=== PATIENT | male | born 1975 | race Caucasian/White ===

== ENCOUNTER 2019-03-14 19:22 | Inpatient (IN) | payer OTHER ==
[~2019-03-14] VITALS: Ht 182.9 cm; Wt 135.3 kg
[2019-03-14] MEDS ORDERED: SOD CHLORIDE 0.9% 1,000 ML IV STA (20:40)
[2019-03-14] MEDS ORDERED: DICYCLOMINE 20 MG INJ IM ONE (21:00)
[2019-03-14] MEDS ORDERED: morphine 4 MG/ML VIAL IV STA ×2 (22:24→23:03)
[2019-03-14] MEDS ORDERED: ONDANSETRON 4 MG INJ ONE (22:27)
[2019-03-14] MEDS ORDERED: PIPER-TAZO 3.375 GM IV (PMX) 100 ML IVPB STA (23:03)
[2019-03-14] MEDS ORDERED: RANI150T5 PO (23:13)
[2019-03-15] VITALS (16 sets, daily range): BP systolic 112–140; BP diastolic 64–80; PULSE 60–115; RESP 15–18; Ht 182.9 cm; Wt 135.3 kg
--- NOTE | 2019-03-15 00:03 | ERD ---
ER Documentation Chief Complaint Chief Complaint diffuse belly pains x a month HPI 43-year-old male presenting with diffuse abdominal pain that he describes as cramping and burning. He states that he has had these "episodes" of abdominal pain for several years. He had an endoscopy and colonoscopy done about 15 years ago for this which were unremarkable. He has not seen a physician for this pain ever since. Within the past month, his pain has worsened. It is generalized, colicky, with no associated fevers. He did have one episode of vomiting this morning which was nonbloody and nonbilious. But usually he denies any nausea or vomiting with these episodes. He states that his stools are occasionally loose but he is also occasionally constipated. No bloody bowel movements or melena. Due to worsening pain, his brought him in for evaluation. ROS All systems reviewed and are negative except as per history of present illness. Medications Home Meds Reported Medications Ranitidine Hcl* (Ranitidine Hcl*) 150 Mg Tablet, 150 MG PO DAILY, #30 TAB 03/14/19 Allergies Allergies: Coded Allergies: No Known Allergy (Unverified , 03/14/19) PMhx/Soc Medical and Surgical Hx: pt denies Medical Hx, pt denies Surgical Hx Hx Miscellaneous Medical Probl: Yes (Chronic abdominal pain) Hx Alcohol Use: No Hx Substance Use: Yes (marijuana) Hx Tobacco Use: No Smoking Status: Never smoker FmHx Family History: No diabetes Physical Exam Vitals Vital Signs Date Temp Pulse Resp B/P (MAP) Pulse Ox O2 O2 Flow FiO2 Time Delivery Rate 03/14/19 99.3 78 18 136/83 96 23:53 (100) 03/14/19 99.3 81 18 122/77 96 23:04 (92) 03/14/19 99.3 95 18 151/89 96 19:27 (109) Physical Exam Const: No acute distress, well-appearing, nontoxic Head: Atraumatic Eyes: Normal Conjunctiva ENT: Normal External Ears, Nose and Mouth. Neck: Full range of motion. No meningismus. Resp: Clear to auscultation bilaterally Cardio: Regular rate and rhythm, no murmurs Abd: Soft, diffuse mild tenderness to palpation with no rebound or guarding. Negative Forbes sign. No McBurney's point tenderness. Hyperactive bowel sounds Skin: No petechiae or rashes Back: No midline or flank tenderness Ext: No cyanosis, or edema Neur: Awake and alert Psych: Normal Mood and Affect Result Diagram: 03/14/19202803/14/192028 Results 24 hrs Laboratory Tests Test 03/14/19 20:29 White Blood Count 9.7 10^3/ul Red Blood Count 5.84 10^6/ul Hemoglobin 15.8 g/dl Hematocrit 48.4 % Mean Corpuscular Volume 82.9 fl Mean Corpuscular Hemoglobin 27.1 pg Mean Corpuscular Hemoglobin Concent 32.6 g/dl Red Cell Distribution Width 12.4 % Platelet Count 214 10^3/UL Mean Platelet Volume 9.3 fl Immature Granulocytes % 0.300 % Neutrophils % 75.6 % Lymphocytes % 18.5 % Monocytes % 5.1 % Eosinophils % 0.4 % Basophils % 0.1 % Nucleated Red Blood Cells % 0.0 /100WBC Immature Granulocytes # 0.030 10^3/ul Neutrophils # 7.3 10^3/ul Lymphocytes # 1.8 10^3/ul Monocytes # 0.5 10^3/ul Eosinophils # 0.0 10^3/ul Basophils # 0.0 10^3/ul Nucleated Red Blood Cells # 0.0 10^3/ul Urine Color YELLOW Urine Clarity CLEAR Urine pH 6.0 Urine Specific [place] 1.014 Urine Ketones NEGATIVE mg/dL Urine Nitrite NEGATIVE mg/dL Urine Bilirubin NEGATIVE mg/dL Urine Urobilinogen NEGATIVE mg/dL Urine Leukocyte Esterase NEGATIVE Osfi/ul Urine Hemoglobin NEGATIVE mg/dL Urine Glucose NEGATIVE mg/dL Urine Total Protein NEGATIVE mg/dl Sodium Level 144 mmol/L Potassium Level 3.9 mmol/L Chloride Level 104 mmol/L Carbon Dioxide Level 30 mmol/L Anion Gap 10 Blood Urea Nitrogen 11 mg/dl Creatinine 0.96 mg/dl Est Glomerular Filtrat Rate mL/min > 60 mL/min Glucose Level 99 mg/dl Calcium Level 9.8 mg/dl Total Bilirubin 0.8 mg/dl Direct Bilirubin 0.00 mg/dl Indirect Bilirubin 0.8 mg/dl Aspartate Amino Transf (AST/SGOT) 40 IU/L Alanine Aminotransferase (ALT/SGPT) 73 IU/L Alkaline Phosphatase 94 IU/L Total Protein 8.5 g/dl Albumin 4.7 g/dl Globulin 3.80 g/dl Albumin/Globulin Ratio 1.23 Lipase 64 U/L Current Medications Medications Dose Sig/Brandi Start Time Status Last (Trade) Ordered Route PRN Stop Time Admin Dose Reason Admin Sodium 1,000 ml @ Q1H STAT 03/14/19 DC 03/14/19 Chloride 1,000 mls/hr IV 20:40 21:02 03/14/19 21:39 Dicyclomine 20 mg ONCE ONCE 03/14/19 DC 03/14/19 HCl IM 21:00 21:24 (Bentyl) 03/14/19 21:01 Morphine 4 mg ONCE STAT 03/14/19 DC 03/14/19 Sulfate IV 22:24 22:28 (morphine) 03/14/19 22:25 Ondansetron 4 mg STK-MED 03/14/19 DC HCl (Zofran ONCE .ROUTE 22:27 Inj) 03/14/19 22:28 Morphine 6 mg ONCE STAT 03/14/19 DC 03/14/19 Sulfate IV 23:03 23:18 (morphine) 03/14/19 23:05 Piperacillin 100 ml @ ONCE STAT 03/14/19 DC 03/14/19 Sod/ 200 mls/hr IVPB 23:03 23:18 Tazobactam 03/14/19 23:32 Sod Ondansetron 4 mg BRIDGE ORDER 03/15/19 HCl (Zofran PRN IV 00:00 Inj) NAUSEA/VOMITI 03/15/19 23:59 NG 650 mg ER BRIDGE 03/15/19 Acetaminophen PRN PO 00:00 (Tylenol .MILD PAIN 03/15/19 23:59 Tab) 1-3 OR TEMP Procedures/MDM EMERGENT LABS AND DIAGNOSTIC STUDIES: Lab Results above were reviewed and interpreted by me. CBC: no anemia or evidence of infection CMP: No evidence of clinically significant electrolyte abnormality, acidosis, renal failure, hypoglycemia, liver disease, or biliary obstruction Lipase: no evidence of pancreatitis UA: no evidence of infection Radiology Results as interpreted by Radiology below were reviewed by Shaun Quintanilla MD: CT abdomen and pelvis shows evidence of acute appendicitis with no abscess or perforation Initial Nursing notes reviewed. Previous Medical Records requested via the Electronic Health Record. EMERGENCY DEPARTMENT COURSE / MEDICAL DECISION MAKING: Patient is presenting with generalized chronic abdominal pain that has been worsening. He is afebrile with stable vitals. Differential includes but is not limited to IBS, IBD, appendicitis, bowel obstruction, constipation, panc reatitis. Labs did not show any significant abnormalities. CT of the abdomen and pelvis was done showing evidence of acute appendicitis. I contacted general surgeon on-call. Patient will be admitted and made n.p.o. 1 dose of Zosyn given in the ER. Accepting Care Team: Current data and ongoing care discussed. Time: Time of admission Primary Provider: Dr. Mendez Consulting: Dr. Richardson with general surgery Outstanding Data: none Departure Diagnosis: Primary Impression: Acute appendicitis Acute appendicitis type: unspecified acute appendicitis type Qualified Codes: K35.80 - Unspecified acute appendicitis Condition: LOUANN Cruz MD Mar 15, 2019 00:03
[2019-03-15] MEDS ORDERED: ONDANSETRON 4 MG INJ IV PRN ×4 (00:30→12:00)
[2019-03-15] MEDS ORDERED: DOCUSATE SODIUM 100 MG CAP PO PRN (00:30)
[2019-03-15] MEDS ORDERED: ACETAMINOPHEN 325 MG TAB PO PRN ×2 (00:30)
[2019-03-15] MEDS ORDERED: morphine 2 MG INJ IV PRN ×3 (00:30→12:00)
[2019-03-15] MEDS ORDERED: NACL 0.9% 3 ML SYG IV SCH (00:30)
[2019-03-15] MEDS ORDERED: HEPARIN 5,000 UNIT/1 ML VIAL SC SCH (00:30)
[2019-03-15] MEDS: D5W-0.45 NACL + KCL 20 MEQ 1,000 ML IV SCH ×3 (01:18→20:07)
[2019-03-15] MEDS: FAMOTIDINE 20 MG INJ IV SCH ×3 (01:26→20:51)
--- NOTE | 2019-03-15 08:56 | CONS ---
Assessment/Plan Assessment/Plan Assessment/Plan (Daily) CT shows acute retrocecal appendicitis. This does not explain any of the patient's chronic abdominal symptoms. When options were discussed in some detail with the patient and fianc. The patient feels strongly that because of the CT finding of appendicitis that he would like to proceed with appendectomy. I have discussed the procedure, outcomes, expectations, alternatives and risks in detail with the patient who has an excellent understanding of the nature of his situation and agrees to the proposed plan of therapy as outlined. Consultation Date/Type/Reason Admit Date/Time Mar 14, 2019 at 23:44 Date of Consultation: Mar 15, 2019 Type of Consult General surgery Reason for Consultation Acute appendicitis Date/Time of Note DATE: 03/15/19 TIME: 08:51 Hx of Present Illness The patient is a 43-year-old gentleman who presents to the emergency room with a very unusual history of many weeks of nonspecific abdominal pain, but lately mostly in the right lower quadrant. He has had no fevers or chills. He states that he has been having abdominal issues for years but never has had abdominal surgery. CT scan in the emergency room showed acute retrocecal appendicitis Review of systems: HEENT: Within normal limits Pulmonary: No history of asthma, pneumonia or shortness of breath Cardiac: No history of chest pain, MO or arrhythmia Abdomen: As in the HPI : Asymptomatic Past Medical History Medical History: no pertinent history Home Meds Reported Medications Ranitidine Hcl* (Ranitidine Hcl*) 150 Mg Tablet, 150 MG PO DAILY, #30 TAB 03/14/19 Medications Current Medications Ondansetron HCl (Zofran Inj) 4 mg BRIDGE ORDER PRN IV NAUSEA/VOMITING; Start 03/15/19 at 00:00; Stop 03/15/19 at 23:59 Acetaminophen (Tylenol Tab) 650 mg ER BRIDGE PRN PO .MILD PAIN 1-3 OR TEMP; Start 03/15/19 at 00:00; Stop 03/15/19 at 23:59 Potassium Chloride/Dextrose/ Sod Cl 1,000 ml @ 100 mls/hr Q10H IV Last administered on 03/15/19at 01:18; Admin Dose 100 MLS/HR; Start 03/15/19 at 00:07 IV Flush (NS 3 ml) 3 ml PER PROTOCOL IV ; Start 03/15/19 at 00:30 Ondansetron HCl (Zofran Inj) 4 mg Q6H PRN IV NAUSEA/VOMITING; Start 03/15/19 at 00:30 Acetaminophen (Tylenol Tab) 650 mg Q6H PRN PO .PAIN 1-3 OR TEMP; Start 03/15/19 at 00:30 Docusate Sodium (Colace) 100 mg Q12H PRN PO .CONSTIPATION; Start 03/15/19 at 00:30 Famotidine (Pepcid Iv) 20 mg Q12 IV Last administered on 03/15/19at 01:26; Admin Dose 20 MG; Start 03/15/19 at 00:30 Hydromorphone HCl (Dilaudid) 1 mg Q2 PRN IV SEVERE PAIN LEVEL 7-10; Start 03/15/19 at 03:30 Morphine Sulfate (morphine) 2 mg Q2H PRN IV SEVERE PAIN LEVEL 7-10; Start 03/15/19 at 08:00 Allergies: Coded Allergies: No Known Allergy (Unverified , 03/14/19) Past Surgical History Past Surgical Hx: no surgical history Family History Significant Family History: no pertinent family hx Social History Smoking Status: Former smoker Exam/Review of Systems Exam Vitals Vital Signs Date Temp Pulse Resp B/P (MAP) Pulse Ox O2 O2 Flow FiO2 Time Delivery Rate 03/15/19 97.9 66 18 112/76 97 07:50 (88) 03/15/19 Room Air 01:09 Intake and Output 03/14/19 03/14/19 03/15/19 1515:00 23:00 07:00 IntakeIntake Total 500 ml BalanceBalance 500 ml Constitutional: alert, oriented Psych: no complaints Head: normocephalic Eyes: nl conjunctiva ENMT: nl external ears & nose Neck: supple Respiratory: clear to auscultation Cardiovascular: regular rate and rhythm Gastrointestinal: soft (Obese with minimal if any tenderness in the right lower quadrant) Musculoskeletal: nl extremities to inspection Extremities: normal pulses Neurological: SLEEPING [employer]ENDANT II-XII intact Skin: nl turgor Results Result Diagram: 03/15/19 0539 03/15/19 0539 Results 24hrs Laboratory Tests Test 03/14/19 20:29 03/15/19 05:39 White Blood Count 9.7 7.8 Red Blood Count 5.84 5.23 Hemoglobin 15.8 14.1 Hematocrit 48.4 43.4 Mean Corpuscular Volume 82.9 83.0 Mean Corpuscular Hemoglobin 27.1 L 27.0 L Mean Corpuscular Hemoglobin Concent 32.6 32.5 Red Cell Distribution Width 12.4 12.4 Platelet Count 214 174 Mean Platelet Volume 9.3 9.5 Immature Granulocytes % 0.300 0.300 Neutrophils % 75.6 69.1 Lymphocytes % 18.5 23.7 Monocytes % 5.1 5.7 Eosinophils % 0.4 0.9 Basophils % 0.1 0.3 Nucleated Red Blood Cells % 0.0 0.0 Immature Granulocytes # 0.030 0.020 Neutrophils # 7.3 5.4 Lymphocytes # 1.8 1.8 Monocytes # 0.5 0.4 Eosinophils # 0.0 0.1 Basophils # 0.0 0.0 Nucleated Red Blood Cells # 0.0 0.0 Urine Color YELLOW Urine Clarity CLEAR Urine pH 6.0 Urine Specific [place] 1.014 Urine Ketones NEGATIVE Urine Nitrite NEGATIVE Urine Bilirubin NEGATIVE Urine Urobilinogen NEGATIVE Urine Leukocyte Esterase NEGATIVE Urine Hemoglobin NEGATIVE Urine Glucose NEGATIVE Urine Total Protein NEGATIVE Sodium Level 144 143 Potassium Level 3.9 4.3 Chloride Level 104 105 Carbon Dioxide Level 30 30 Anion Gap 10 8 Blood Urea Nitrogen 11 10 Creatinine 0.96 0.90 Est Glomerular Filtrat Rate mL/min > 60 > 60 Glucose Level 99 97 Calcium Level 9.8 9.0 Total Bilirubin 0.8 Direct Bilirubin 0.00 Indirect Bilirubin 0.8 Aspartate Amino Transf (AST/SGOT) 40 Alanine Aminotransferase (ALT/SGPT) 73 H Alkaline Phosphatase 94 Total Protein 8.5 H Albumin 4.7 Globulin 3.80 H Albumin/Globulin Ratio 1.23 Lipase 64 Prothrombin Time 13.4 Prothrombin Time Ratio 1.0 INR International Normalized Ratio 1.01 Hemoglobin A1c 5.0 Free Thyroxine Index 3.52 Thyroxine (T4) 10.1 Triiodothyronine (T3) Uptake 34.9 Medications Medication Current Medications Ondansetron HCl (Zofran Inj) 4 mg BRIDGE ORDER PRN IV NAUSEA/VOMITING; Start 03/15/19 at 00:00; Stop 03/15/19 at 23:59 Acetaminophen (Tylenol Tab) 650 mg ER BRIDGE PRN PO .MILD PAIN 1-3 OR TEMP; Start 03/15/19 at 00:00; Stop 03/15/19 at 23:59 Potassium Chloride/Dextrose/ Sod Cl 1,000 ml @ 100 mls/hr Q10H IV Last administered on 03/15/19at 01:18; Admin Dose 100 MLS/HR; Start 03/15/19 at 00:07 IV Flush (NS 3 ml) 3 ml PER PROTOCOL IV ; Start 03/15/19 at 00:30 Ondansetron HCl (Zofran Inj) 4 mg Q6H PRN IV NAUSEA/VOMITING; Start 03/15/19 at 00:30 Acetaminophen (Tylenol Tab) 650 mg Q6H PRN PO .PAIN 1-3 OR TEMP; Start 03/15/19 at 00:30 Docusate Sodium (Colace) 100 mg Q12H PRN PO .CONSTIPATION; Start 03/15/19 at 00:30 Famotidine (Pepcid Iv) 20 mg Q12 IV Last administered on 03/15/19at 01:26; Admin Dose 20 MG; Start 03/15/19 at 00:30 Hydromorphone HCl (Dilaudid) 1 mg Q2 PRN IV SEVERE PAIN LEVEL 7-10; Start 03/15/19 at 03:30 Morphine Sulfate (morphine) 2 mg Q2H PRN IV SEVERE PAIN LEVEL 7-10; Start 03/15/19 at 08:00 RAHEL SAUL MD Mar 15, 2019 08:55
--- NOTE | 2019-03-15 10:27 | PREAC ---
Date/Time of Note Date/Time of Note DATE: 03/15/19 TIME: 10:26 Anesthesia Eval and Record Evaluation Time Pre-Procedure Interview DATE: 03/15/19 TIME: 10:26 Age 43 Sex male NPO: 8 hrs Preoperative diagnosis appendicitis Planned procedure Lap Appy Past Medical History Past Medical History: Includes GI: GERD, Morbid obesity Surgery & Anesthesia Issues No known issue Meds Anticoagulation: No Beta Yann within 24 hr: No Reason Beta Yann not given: Pt. not on B-Yann Reported Medications Ranitidine Hcl* (Ranitidine Hcl*) 150 Mg Tablet, 150 MG PO DAILY, #30 TAB 03/14/19 Current Medications Ondansetron HCl (Zofran Inj) 4 mg BRIDGE ORDER PRN IV NAUSEA/VOMITING; Start 03/15/19 at 00:00; Stop 03/15/19 at 23:59 Acetaminophen (Tylenol Tab) 650 mg ER BRIDGE PRN PO .MILD PAIN 1-3 OR TEMP; Start 03/15/19 at 00:00; Stop 03/15/19 at 23:59 Potassium Chloride/Dextrose/ Sod Cl 1,000 ml @ 100 mls/hr Q10H IV Last administered on 03/15/19at 01:18; Admin Dose 100 MLS/HR; Start 03/15/19 at 00:07 IV Flush (NS 3 ml) 3 ml PER PROTOCOL IV ; Start 03/15/19 at 00:30 Ondansetron HCl (Zofran Inj) 4 mg Q6H PRN IV NAUSEA/VOMITING; Start 03/15/19 at 00:30 Acetaminophen (Tylenol Tab) 650 mg Q6H PRN PO .PAIN 1-3 OR TEMP; Start 03/15/19 at 00:30 Docusate Sodium (Colace) 100 mg Q12H PRN PO .CONSTIPATION; Start 03/15/19 at 00:30 Famotidine (Pepcid Iv) 20 mg Q12 IV Last administered on 03/15/19at 01:26; Admin Dose 20 MG; Start 03/15/19 at 00:30 Hydromorphone HCl (Dilaudid) 1 mg Q2 PRN IV SEVERE PAIN LEVEL 7-10; Start 03/15/19 at 03:30 Morphine Sulfate (morphine) 2 mg Q2H PRN IV SEVERE PAIN LEVEL 7-10; Start 07/24 at 08:00 Meds reviewed: Yes Allergies Coded Allergies: No Known Allergy (Unverified , 03/14/19) Allergies Reviewed: Yes Labs/Studies Labs Reviewed: Reviewed by anesthesiologist Result Diagram: 03/15/19 0539 03/15/19 0539 Laboratory Tests 03/15/19 05:39 test: N/A Pre-procedure Exam Last vitals Vital Signs Date Temp Pulse Resp B/P (MAP) Pulse Ox O2 O2 Flow FiO2 Time Delivery Rate 03/15/19 97.9 66 18 112/76 97 07:50 (88) 03/15/19 Room Air 01:09 Airway: Adequate mouth opening, Adequate thyromental dist Mallampati: Mallampati II Teeth: Normal Lung: Normal Heart: Normal ASA Physical Status ASA physical status: 2 Emergency: None Planned Anesthetic General/MAC: ETT Nerve block: TAP (bilateral) Pre-operative Attestations Prior to commencing anesthesia and surgery, the patient was re-evaluated, there was verification of: *The patient's identity *The results of appropriate recent lab work and preoperative vital signs *The above evaluation not changing prior to induction *Anesthetic plan, risk benefits, alternative and complications discussed with patient/family; questions answered; patient/family understands, accepts and wishes to proceed. CELSO BARAKAT Mar 15, 2019 10:27
[2019-03-15] MEDS ORDERED: DIPHENHYDRAMINE 50 MG INJ IV PRN (10:30)
[2019-03-15] MEDS ORDERED: ALBUTEROL 0.083% (NEB) 2.5 MG/3 ML AMP HHN PRN (10:30)
[2019-03-15] MEDS ORDERED: FENTAnyl 50 MCG/ML VIAL IV PRN ×2 (10:30)
[2019-03-15] MEDS ORDERED: HYDROmorphONE 1 MG/5 ML IV SYRINGE IV PRN ×3 (10:30)
[2019-03-15] MEDS ORDERED: METOCLOPRAMIDE 10 MG INJ IV PRN (10:30)
[2019-03-15] MEDS ORDERED: MEPERIDINE 25 MG INJ IV PRN (10:30)
[2019-03-15] MEDS ORDERED: BUPIVACAINE 0.25%/EPI (SDV) 30 ML INJ ONE (10:37)
[2019-03-15] MEDS ORDERED: FENTAnyl 50 MCG/ML VIAL ONE (10:48)
[2019-03-15] MEDS ORDERED: LIDOCAINE 2% (SDV) 5 ML INJ ONE (10:48)
[2019-03-15] MEDS ORDERED: ROPIVACAINE 0.5 % 30 ML VIAL ONE (10:48)
[2019-03-15] MEDS ORDERED: DEXAMETHASONE 4 MG/ML 5 ML INJ ONE (10:57)
[2019-03-15] MEDS ORDERED: ROCURONIUM 50 MG INJ ONE (11:36)
[2019-03-15] MEDS ORDERED: PROPOFOL 40 ML ONE (11:36)
[2019-03-15] MEDS ORDERED: SUCCINYLCHOLINE CHLORIDE 100 MG/5 ML SYG IV ONE (11:36)
[2019-03-15] MEDS ORDERED: SUGAMMADEX SODIUM 200 MG/2 ML VIAL IV ONE (11:36)
[2019-03-15] MEDS ORDERED: CEFAZOLIN 1 GM INJ ONE (11:36)
--- NOTE | 2019-03-15 11:47 | OPR ---
Date/Time of Note Date/Time of Note DATE: 03/15/19 TIME: 11:42 Operative Report Procedure Date: Mar 15, 2019 Preoperative Diagnosis Acute retrocecal appendicitis Postoperative Diagnosis Acute retrocecal appendicitis with localized peritonitis Operation/Procedure Performed Laparoscopic appendectomy Surgeon Rahel Saul MD Device Engineer None Anesthesia Type: general Anesthesiologist: CELSO BARAKAT Estimated Blood Loss: minimal Transfusion none Specimen Appendix Grafts/Implants none Tubes/Drains None Complications none Pt Condition Post Procedure: stable Disposition: PACU Indications Acute appendicitis Procedure Description After satisfactory general endotracheal anesthesia was achieved, the abdomen was prepped and draped in the usual fashion. The abdomen was insufflated with carbon dioxide through an umbilical Veress needle to 15 mmHg pressure. The Veress needle was removed, and the umbilical incision extended to 5 mm through which a 5 mm trocar was placed. A 5 mm 0 degree lens was placed. Under direct visualization a 5 mm suprapubic trocar was placed. The camera was placed into the suprapubic port. The cecum was mobilized. The appendix was retrocecal and acutely inflamed and with slight localized peritonitis. Under direct visualization a 12 mm trocar was placed midway between the umbilicus and the xiphoid. A window was made in the mesoappendix through which a stapler was placed across the base of the cecum, closed and fired disconnecting the appendix from the cecum. A second firing of the stapler across the mesoappendix fully freed the appendix, which was then placed into an Endo Catch removed by the 12 mm port site. Hemostasis of both staple lines was total and irrigant returned clear. 2-0 Vicryl sutures were placed at the 12 mm port site with the assistance of a meredith-close device. The abdomen was then desufflated and all trochars were removed. The fascial sutures were tied down. The skin punctures were infiltrated with 30 cc of 0.25% Marcaine with epinephrine and closed with willie. Sponge and needle counts were reported as correct x2. RAHEL SAUL MD Mar 15, 2019 11:47
[2019-03-15] MEDS ORDERED: OXYCODONE/ACETAMINOPHEN (5/325) TAB PO PRN ×2 (12:00)
[2019-03-15] MEDS: FENTAnyl 50 MCG/ML VIAL IV PRN ×2 (12:25→12:44)
--- NOTE | 2019-03-15 13:34 | PAC ---
Date/Time of Note Date/Time of Note DATE: 03/15/19 TIME: 13:34 Post-Anesthesia Notes Post-Anesthesia Note Last documented vital signs Vital Signs Date Temp Pulse Resp B/P (MAP) Pulse Ox O2 O2 Flow FiO2 Time Delivery Rate 03/15/19 68 15 124/75 98 Nasal 2.0 12:49 (91) Cannula 03/15/19 97.6 11:56 Activity: WNL Respiratory function: WNL Cardiovascular function: WNL Mental status: Baseline Pain reasonably controlled: Yes Hydration appropriate: Yes Nausea/Vomiting absent: Yes CELSO BARAKAT Mar 15, 2019 13:34
[2019-03-15] MEDS: HYDROmorphONE 1 MG/ML SYG IV PRN ×4 (13:48→21:27)
--- NOTE | 2019-03-15 14:32 | HP ---
DATE OF ADMISSION: 03/14/2019 CHIEF COMPLAINT: Abdominal pain. HISTORY OF PRESENT ILLNESS: A 43-year-old male presented to Emergency Room with complaint of abdomin al pain, especially localizing in the right lower quadrant. The patient reports having had symptoms for several weeks. He denied any nausea or vomiting. No fevers or chills. Initial evaluation inclu ded a CAT scan of the abdomen and pelvis. This revealed acute retrocecal appendicitis. The patient has been evaluated by Dr. Richardson and planned to undergo laparoscopic cholecystectomy. PAST MEDICAL HISTORY: None. MEDICATIONS PRIOR TO ADMISSION: Ranitidine. SOCIAL HISTORY: The patient reports a previous history of smoking. He denies alcohol. PHYSICAL EXAMINATION: GENERAL: Well-developed, well-nourished young male who is in no acute distress. VITAL SIGNS: Stable. He is afebrile. HEENT: Extraocular muscles intact. Pupils equal, round, reactive to light bilaterally. Sclerae are anicteric. Oropharynx is clear and moist. NECK: Supple, no JVD, no carotid bruits. LUNGS: Clear to auscultation bilaterally. CARDIAC: Regular rate and rhythm. No murmurs or gallops. ABDOMEN: Soft, obese. Mild tenderness to palpation over the right lower quadrant. Normoactive dain l sounds. EXTREMITIES: No clubbing, cyanosis, or edema. NEUROLOGIC: Nonfocal. LABORATORY STUDIES: CBC and BMP are within normal limits. ASSESSMENT: A 43-year-old male with acute appendicitis. PLAN: 1. Admit to med/surg, proceed with laparoscopic appendectomy. 2. Surgical followup. Dictated By: DEEPTI BUCHANAN/RUBEN Conf#: [id number] DID#: [id number] CC: OLGA ATWOOD MD;*EndCC*
[2019-03-15] MEDS: ZOLPIDEM 5 MG TAB PO PRN (23:56)
[2019-03-16 02:00] VITALS: BP 114/66; PULSE 101; RESP 17
[2019-03-16] MEDS: HYDROmorphONE 1 MG/ML SYG IV PRN ×4 (02:00→10:52)
[2019-03-16] MEDS: ZOLPIDEM 5 MG TAB PO PRN (02:43)
[2019-03-16] MEDS: D5W-0.45 NACL + KCL 20 MEQ 1,000 ML IV SCH (03:51)
[2019-03-16 07:52] VITALS: BP 134/60; PULSE 84; RESP 17
[2019-03-16] MEDS: FAMOTIDINE 20 MG INJ IV SCH (08:45)
[2019-03-16] MEDS ORDERED: HYDR-4011 PO (09:48)
--- NOTE | 2019-03-16 09:49 | PDOCDIS ---
Discharge Instructions CONDITION [id number] Patient Condition: [id number] Good HOME CARE INSTRUCTIONS: [id number] Diet Instructions: [id number] Regular ACTIVITY: [id number] Activity Restrictions: [id number] Slowly Increase Activity Avoid heavy lifting FOLLOW UP/APPOINTMENTS Follow-up Plan pcp [address] Richardson 1 week DEEPTI SNOWDEN MD Mar 16, 2019 09:49
--- NOTE | 2019-03-16 10:34 | DS ---
DATE OF ADMISSION: 03/14/2019 DATE OF DISCHARGE: 03/16/2019 DISCHARGE DIGANOSES: 1. A 43-year-old male with acute retrocecal appendicitis. 2. Status post laparoscopic appendectomy. 3. Moderate obesity. HOSPITAL COURSE: A 43-year-old male with a history of chronic abdominal pain, presented to the emerg ency room with complaint of right lower quadrant abdominal pain. The CAT scan of the abdomen and pel vis showed retrocecal appendicitis. The patient was seen in consultation by Dr. Saul. He was take n to the operating room and underwent a laparoscopic appendectomy. There was evidence of acute retro cecal appendicitis with localized peritonitis. There were no intraoperative or postoperative complic ations. The patient is moderately obese. He was encouraged to lose weight. I prescribed [place] 5/ 5 to be taken every 4 hours as needed. The patient will follow up with PCP and Dr. Saul in 1 week. Dictated By: DEEPTI SNOWDEN MD SK/NTS Conf#: [id number] DID#: [id number] CC: RAHEL SAUL MD; OLGA ATWOOD MD;*EndCC*
== END 2019-03-16 14:30 | disposition home or self-care (01) | DRG 339 ==
LOC: E/R 19:22 → PP2 23:44
PROVIDERS: ADMIT Internal Medicine; ATTEND Internal Medicine
PROC: 0DTJ4ZZ Resection of Appendix, Percutaneous Endoscopic Approach (ICD-10-PCS; principal; 2019-03-15 12:00)
DX: K35.32 Acute appendicitis with perforation, localized peritonitis, and gangrene, without abscess (principal); Z68.41 Body mass index [BMI] 40.0-44.9, adult; E66.01 Morbid (severe) obesity due to excess calories; Z87.891 Personal history of nicotine dependence
CPT/HCPCS: 36415; 74176; 80048; 80053; 81003; 83036; 83690; 84436; 84479; 85025; 85610; 88304; 96372; 96374; 96375; 96376; J0500; J0690; J1100; J1170; J2175; J2270; J2405; J2543; J2795; J3010; J3480; J7030